=== PATIENT | female | born 1970 | race Caucasian/White ===

== ENCOUNTER 2016-06-11 12:36 | Inpatient (IN) | payer OTHER, MEDICARE ==
[~2016-06-11] VITALS: Ht 162.6 cm; Wt 96.1 kg
[~2016-06-11 12:36] MED LIST: ALBU1.25 NEB; ALBU1AER INH; ALBUAER3 INH; ATOR40TA16 PO; ATOR40TA49 PO; BETH25 PO; BETH25TA2 PO; CETI10 PO; CYMB60CA PO; DEXI60CA PO; DEXI60CA3 PO; ENAL10TA7 PO; FENO160T PO; GABA600T PO; HYDR50 PO; LAMI200T PO; MONT10TA2 PO; MONT10TA4 PO; PROM25TA5 PO; ZOFR4TAB3 SL
[2016-06-11 12:37] VITALS: BP 159/107; PULSE 86; RESP 20; TEMP 98.2; O2SAT 94
[2016-06-11] MEDS ORDERED: DULE200A INH (13:05)
[2016-06-11] MEDS ORDERED: SODIUM CHLORIDE 0.9% FLUSH 5 ML FLUSH IVF PRN ×2 (13:15→15:30)
[2016-06-11 13:27] VITALS: O2SAT 100
[2016-06-11 13:45] LABS: AUTOMATED NEUTROPHIL # 3.3 TH/MM3 (1.8-7.7); BASOPHIL # 0.1 TH/MM3 (0-0.2); EOSINOPHIL # 0.4 TH/MM3 (0-0.4); HEMATOCRIT 39.2 % (35.0-46.0); HEMO FLAGS DIFF FINAL; LYMPH % 42.2 % (9.0-44.0); MEAN CORPUSCULAR HEMOGLOBIN 29.4 PG (27.0-34.0); MEAN CORPUSCULAR HGB CONC 34.6 % (32.0-36.0); MONO % 5.6 % (0.0-8.0); NEUT % 46.2 % (16.0-70.0); PLATELET COUNT 320 TH/MM3 (150-450); RED BLOOD COUNT 4.61 MIL/MM3 (4.00-5.30); RED CELL DISTRIBUTION WIDTH 14.5 % (11.6-17.2); WHITE BLOOD COUNT 7.1 TH/MM3 (4.0-11.0)
--- NOTE | 2016-06-11 13:53 | PD ---
HPI Chief Complaint: Neuro Symptoms/ Deficits Time Seen by Provider: 12:52 Travel History International Travel<30 days: No Contact w/Intl Traveler<30days: No Traveled to known affect area: No History of Present Illness HPI This is a 45-year-old female who presents to the emergency department with 2 days of left-sided numbness in her arm and her leg associated with a funny feeling in her mouth, and some difficulty walking. She reports that yesterday she felt very weak and dizzy and just slept all day. Her symptoms started around 11 AM. The symptoms persisted today so she decided to come to the emergency department. She has had a headache. She does have a history of hypertension and hyperlipidemia. She has a bladder stimulator which precludes her from getting an MRI. PFSH Past Medical History Hx Anticoagulant Therapy: No Asthma: Yes Anxiety: Yes Cardiovascular Problems: Yes (htn) High Cholesterol: Yes Diminished Hearing: No GERD: Yes Hypertension: Yes Immune Disorder: Yes (INTERSTICHAL CYSTIS) Neurologic: Yes (RLS) Respiratory: Yes (asthma) Immunizations Current: Yes ?: Not Tubal Ligation: Yes Past Surgical History Section: Yes (x1) Cholecystectomy: Yes Genitourinary Surgery: Yes (BLADDER STRETCHING, BLADDER STIMULATOR) Hysterectomy: Yes (2014) Tonsillectomy: Yes Social History Alcohol Use: No Tobacco Use: Yes (1/2 CIGARETTES A DAY/) Substance Use: No Allergies-Medications (Allergen,Severity, Reaction): Coded Allergies: Aspirin (Verified Allergy, Severe, gi, 06/11/16) Ceclor (Verified Allergy, Severe, Rash, 06/11/16) Cephalexin (Verified Allergy, Severe, 06/11/16) Keflex (Verified Allergy, Severe, Swelling, 06/11/16) Penicillin (Verified Allergy, Severe, Anaphylaxis, 06/11/16) Motrin (Verified Allergy, Unknown, gi, 06/11/16) Reported Meds & Prescriptions Reported Meds & Active Scripts Active Reported Dulera 120 Act Inh (Mometasone-Formoterol 120 Act Inh) 200-5 Mcg/Act Inh 2 Puff INH BID Montelukast (Montelukast Sodium) 10 Mg Tab 10 Mg PO HS PRN Albuterol Neb (Albuterol Sulfate) 1.25 Mg/3 Ml Neb 1.25 Mg NEB DIRECTED PRN Proair Hfa 8.5 GM Inh (Albuterol Sulfate) 90 Mcg/Act Aer 2 Puff INH Q4-6H PRN 108 mcg/actuation Urecholine (Bethanechol Chloride) 25 Mg Tab 25 Mg PO Q12HR Lamictal (Lamotrigine) 200 Mg Tab 200 Mg PO DAILY Gabapentin 600 Mg Tab 600 Mg PO TID Fenofibrate 160 Mg Tab 160 Mg PO DAILY Enalapril-Hydrochorothiazide (Enalapril-Hydrochlorothiazide) 10-25 Mg Tab 10-25 Mg PO DAILY Dexilant (Dexlansoprazole) 60 Mg Cap 60 Mg PO DAILY Cymbalta DR (Duloxetine HCl) 60 Mg Capdr 60 Mg PO DAILY Bethanechol 25 Mg Tab 25 Mg PO XX Atorvastatin (Atorvastatin Calcium) 40 Mg Tab 40 Mg PO DAILY Review of Systems Except as stated in HPI: all other systems reviewed are Neg Physical Exam Narrative GENERAL:Well appearing, no acute distress SKIN: Warm and dry. HEAD: Atraumatic. Normocephalic. EYES: Pupils equal and round. No injection or drainage. ENT: Moist mucous membranes NECK: Trachea midline. CARDIOVASCULAR: Regular rate and rhythm. No murmur appreciated. RESPIRATORY: Clear to auscultation. Breath sounds equal bilaterally. GASTROINTESTINAL: Abdomen soft, non-tender, nondistended. MUSCULOSKELETAL: No obvious deformities. NEUROLOGICAL: Awake and alert. Asymmetry with some right sided facial droop. No dysarthria or aphasia. 4 out of 5 strength in the left lower extremity, 5 out of 5 strength in the right lower extremity, 5 out of 5 strength in the bilateral upper extremities. No upper extremity ataxia. Visual christina intact. PSYCHIATRIC: Appropriate mood and affect; insight and judgment normal. Data Data Last Documented VS Vital Signs Date Time Temp Pulse Resp B/P Pulse Ox O2 Delivery O2 Flow Rate FiO2 06/11/16 13:27 100 Room Air 06/11/16 12:37 98.2 86 20 159/107 Orders Electrocardiogram (06/11/16 ) Prothrombin Time / Inr (Pt) (06/11/16 13:02) Act Partial Throm Time (Ptt) (06/11/16 13:02) Complete Blood Count With Diff (06/11/16 13:02) Comprehensive Metabolic Panel (06/11/16 13:02) Troponin I (06/11/16 13:02) Urinalysis - C+S If Indicated (06/11/16 13:02) Ct Brain W/O Iv Contrast(Rout) (06/11/16 13:02) Ecg Monitoring (06/11/16 13:02) Iv Access Insert/Monitor (06/11/16 13:02) Oximetry (06/11/16 13:02) Sodium Chloride 0.9% Flush (Ns Flush) (06/11/16 13:15) Admit Order (Ed Use Only) (06/11/16 ) Labs Laboratory Tests Test 06/11/16 13:15 White Blood Count 7.1 TH/MM3 Red Blood Count 4.61 MIL/MM3 Hemoglobin 13.5 GM/DL Hematocrit 39.2 % Mean Corpuscular Volume 85.0 FL Mean Corpuscular Hemoglobin 29.4 PG Mean Corpuscular Hemoglobin 34.6 % Concent Red Cell Distribution Width 14.5 % Platelet Count 320 TH/MM3 Mean Platelet Volume 8.6 FL Neutrophils (%) (Auto) 46.2 % Lymphocytes (%) (Auto) 42.2 % Monocytes (%) (Auto) 5.6 % Eosinophils (%) (Auto) 5.0 % Basophils (%) (Auto) 1.0 % Neutrophils # (Auto) 3.3 TH/MM3 Lymphocytes # (Auto) 3.0 TH/MM3 Monocytes # (Auto) 0.4 TH/MM3 Eosinophils # (Auto) 0.4 TH/MM3 Basophils # (Auto) 0.1 TH/MM3 CBC Comment DIFF FINAL Differential Comment Prothrombin Time 10.0 SEC Prothromb Time International 0.9 RATIO Ratio Activated Partial 28.0 SEC Thromboplast Time Sodium Level 138 MEQ/L Potassium Level 3.1 MEQ/L Chloride Level 104 MEQ/L Carbon Dioxide Level 24.6 MEQ/L Anion Gap 9 MEQ/L Blood Urea Nitrogen 12 MG/DL Creatinine 0.74 MG/DL Estimat Glomerular Filtration 86 ML/MIN Rate Random Glucose 117 MG/DL Calcium Level 8.6 MG/DL Total Bilirubin 0.8 MG/DL Aspartate Amino Transf 13 U/L (AST/SGOT) Alanine Aminotransferase 27 U/L (ALT/SGPT) Alkaline Phosphatase 110 U/L Troponin I LESS THAN 0.02 NG/ML Total Protein 7.6 GM/DL Albumin 3.7 GM/DL MDM Medical Decision Making Medical Screen Exam Complete: Yes Emergency Medical Condition: Yes Interpretation(s) afebrile, hypertension No leukocytosis Mild hypokalemia Electrolytes are reassuring Urinalysis is negative for infection Differential Diagnosis Ischemic stroke, hemorrhagic stroke, multiple sclerosis, mass, seizure Narrative Course This is a 45-year-old female who presents the emergency department with left- sided numbness and some difficulty walking. She has objective left lower extremity weakness on exam. She is placed on a monitor and an IV was established. Labs are all reassuring and CT of the head is negative for intracranial hemorrhage. Patient's symptoms are concerning for an ischemic stroke. She is unable to get an MRI because she has a bladder stimulator. The patient will be admitted for neurologic evaluation. Diagnosis Primary Impression: CVA (cerebral vascular accident) Qualified Code: I63.9 - Cerebrovascular accident (CVA), unspecified mechanism Admitting Information Admitting Physician Requests: Admit Kathleen Keane MD Jun 11, 2016 13:53
[2016-06-11 13:54] LABS: INTERNATIONAL NORMALIZED RATIO 0.9 RATIO
[2016-06-11 13:55] LABS: ALKALINE PHOSPHATASE 110 U/L (45-117); ALT (GPT) 27 U/L (10-53); ANION GAP 9 MEQ/L (5-15); AST (GOT) 13 U/L (15-37); BICARBONATE 24.6 MEQ/L (21.0-32.0); BLOOD UREA NITROGEN 12 MG/DL (7-18); CHLORIDE 104 MEQ/L (98-107); GLOMERULAR FILTRATION RATE 86 ML/MIN (>89); POTASSIUM 3.1 MEQ/L (3.5-5.1); SODIUM (NA) 138 MEQ/L (136-145); TOTAL BILIRUBIN ADULT 0.8 MG/DL (0.2-1.0)
--- NOTE | 2016-06-11 14:15 | RADRPT ---
EXAM DATE/TIME: 06/11/2016 13:55 [facility] COMPARISON: No previous studies available for comparison. INDICATIONS : Dizzy yesterday, now left sided weakness and facial droop RADIATION DOSE: 43.05 CTDIvol (mGy) MEDICAL HISTORY : Hypertension. Cardiovascular disease SURGICAL HISTORY : Cholecystectomy. Hysterectomy. ENCOUNTER: Initial ACUITY: 1 day PAIN SCALE: 0/10 LOCATION: cranial TECHNIQUE: Multiple contiguous axial images were obtained of the head. Using automated exposure control and adj ustment of the mA and/or kV according to patient size, radiation dose was kept as low as reasonably a chievable to obtain optimal diagnostic quality images. FINDINGS: CEREBRUM: The ventricles are normal for age. No evidence of midline shift, mass lesion, hemorrhage or acute in farction. No extra-axial fluid collections are seen. POSTERIOR FOSSA: The cerebellum and brainstem are intact. The 4th ventricle is midline. The cerebellopontine angle i s unremarkable. EXTRACRANIAL: The visualized portion of the orbits is intact. SKULL: The calvaria is intact. No evidence of skull fracture. CONCLUSION: No acute disease. Dajuan Ferrell MD on June 11, 2016 at 14:13 Board Certified Radiologist. This report was verified electronically.
--- NOTE | 2016-06-11 15:28 | HHI.HP ---
[facility] Primary Care Physician Jordy Lawler MD Admission Diagnosis stroke Diagnoses: (1) CVA (cerebral vascular accident) Chief Complaint: Left-sided numbness and weakness Travel History International Travel<30 Days: No Contact w/Intl Traveler <30 Da: No Traveled to Known Affected Are: No History of Present Illness 45-year-old female with a history of hypertension, interstitial cystitis for which she has a bladder stimulator was advised by her PCP whom she is going to see today for evaluation of acute onset of left-sided numbness and weakness 2 days, difficulty with walking and a sensation of not feeling well described as dizziness and very sleepy to come to the emergency department for evaluation of uncontrolled/malignant hypertension versus TIA. Patient also reported Headache. She also noticed left lower facial numbness along with what she described as funny speech. She has no bladder or bowel dysfunction Review of Systems Other Other 12 systems reviewed and are negative except for the one mentioned in history of present illness Past Family Social History Past Medical History Asthma: Yes Anxiety: Yes High Cholesterol: Yes GERD: Yes Hypertension: Yes Immune Disorder: Yes (INTERSTICHAL CYSTIS) Neurologic: Yes (RLS) Past Surgical History Section: Yes (x1) Cholecystectomy: Yes Genitourinary Surgery: Yes (BLADDER STRETCHING, BLADDER STIMULATOR) Hysterectomy: Yes (2014) Tonsillectomy: Yes Reported Medications Dulera 120 Act Inh (Mometasone-Formoterol 120 Act Inh) 200-5 Mcg/Act Inh 2 Puff INH BID Montelukast (Montelukast Sodium) 10 Mg Tab 10 Mg PO HS PRN Albuterol Neb (Albuterol Sulfate) 1.25 Mg/3 Ml Neb 1.25 Mg NEB DIRECTED PRN Proair Hfa 8.5 GM Inh (Albuterol Sulfate) 90 Mcg/Act Aer 2 Puff INH Q4-6H PRN 108 mcg/actuation Urecholine (Bethanechol Chloride) 25 Mg Tab 25 Mg PO Q12HR Lamictal (Lamotrigine) 200 Mg Tab 200 Mg PO DAILY Gabapentin 600 Mg Tab 600 Mg PO TID Fenofibrate 160 Mg Tab 160 Mg PO DAILY Enalapril-Hydrochorothiazide (Enalapril-Hydrochlorothiazide) 10-25 Mg Tab 10-25 Mg PO DAILY Dexilant (Dexlansoprazole) 60 Mg Cap 60 Mg PO DAILY Cymbalta DR (Duloxetine HCl) 60 Mg Capdr 60 Mg PO DAILY Bethanechol 25 Mg Tab 25 Mg PO XX Atorvastatin (Atorvastatin Calcium) 40 Mg Tab 40 Mg PO DAILY Allergies: Coded Allergies: Aspirin (Verified Allergy, Severe, gi, 06/11/16) Ceclor (Verified Allergy, Severe, Rash, 06/11/16) Cephalexin (Verified Allergy, Severe, 06/11/16) Keflex (Verified Allergy, Severe, Swelling, 06/11/16) Penicillin (Verified Allergy, Severe, Anaphylaxis, 06/11/16) Motrin (Verified Allergy, Unknown, gi, 06/11/16) Family History Mother with history of hypertension father with history of CVA ,heart attack Social History Alcohol Use: No Tobacco Use: Yes (1/2 CIGARETTES A DAY/) Substance Use: No Physical Exam Vital Signs Vital Signs Date Time Temp Pulse Resp B/P Pulse Ox O2 Delivery O2 Flow Rate FiO2 06/11/16 13:27 100 Room Air 06/11/16 12:37 98.2 86 20 159/107 94 Room Air Physical Exam GENERAL: This is a well-nourished, well-developed patient, in no apparent distress. SKIN: No rashes, ecchymoses or lesions. Cool and dry. HEAD: Atraumatic. Normocephalic. No temporal or scalp tenderness. EYES: Pupils equal round and reactive. Extraocular motions intact. No scleral icterus. No injection or drainage. ENT: Nose without bleeding, purulent drainage or septal hematoma. Throat without erythema, tonsillar hypertrophy or exudate. Uvula midline. Airway patent. NECK: Trachea midline. No JVD or lymphadenopathy. Supple, nontender, no meningeal signs. CARDIOVASCULAR: Regular rate and rhythm without murmurs, gallops, or rubs. RESPIRATORY: Clear to auscultation. Breath sounds equal bilaterally. No wheezes , rales, or rhonchi. GASTROINTESTINAL: Abdomen soft, non-tender, nondistended. No hepato-splenomegaly , or palpable masses. No guarding. MUSCULOSKELETAL: Extremities without clubbing, cyanosis, or edema. No joint tenderness, effusion, or edema noted. No calf tenderness. Negative Homans sign bilaterally. NEUROLOGICAL: Awake and alert. Cranial nerves II through XII intact. Left lower facial droop. 4 out of 5 muscle strength LLE and LUE. Laboratory Laboratory Tests Test 06/11/16 13:15 White Blood Count 7.1 Red Blood Count 4.61 Hemoglobin 13.5 Hematocrit 39.2 Mean Corpuscular Volume 85.0 Mean Corpuscular Hemoglobin 29.4 Mean Corpuscular Hemoglobin 34.6 Concent Red Cell Distribution Width 14.5 Platelet Count 320 Mean Platelet Volume 8.6 Neutrophils (%) (Auto) 46.2 Lymphocytes (%) (Auto) 42.2 Monocytes (%) (Auto) 5.6 Eosinophils (%) (Auto) 5.0 Basophils (%) (Auto) 1.0 Neutrophils # (Auto) 3.3 Lymphocytes # (Auto) 3.0 Monocytes # (Auto) 0.4 Eosinophils # (Auto) 0.4 Basophils # (Auto) 0.1 CBC Comment DIFF FINAL Differential Comment Prothrombin Time 10.0 Prothromb Time International 0.9 Ratio Activated Partial 28.0 Thromboplast Time Sodium Level 138 Potassium Level 3.1 Chloride Level 104 Carbon Dioxide Level 24.6 Anion Gap 9 Blood Urea Nitrogen 12 Creatinine 0.74 Estimat Glomerular Filtration 86 Rate Random Glucose 117 Calcium Level 8.6 Total Bilirubin 0.8 Aspartate Amino Transf 13 (AST/SGOT) Alanine Aminotransferase 27 (ALT/SGPT) Alkaline Phosphatase 110 Troponin I LESS THAN 0.02 Total Protein 7.6 Albumin 3.7 Result Diagram: 06/11/16 1315 06/11/16 1315 Imaging Last Impressions Head CT 06/11/16 1302 Signed Impressions: Service Date/Time: May 13:55 - CONCLUSION: No acute disease. Dajuan Ferrell MD Assessment and Plan Problem List: (1) CVA (cerebral vascular accident) ICD Code: I63.9 Status: Acute Assessment and Plan 45-year-old female with Acute CVA/TIA?: Treatment per stroke protocol -Continue with aspirin -Resume statin therapy -NIHSS, Neuro checks, Monitor on telemetry -PT/OT/ST evaluations, consult rehab medicine -allow permissive HTN, IV Vasotec and IV labetalol if SBP >220 -Check lipid profile and HgbA1c -Check carotid U/S -Head CT 06/11/16 noted and review by me with No acute intracranial disease - brain MRI/MRA contraindicated secondary to bladder stimulator due to interstitial cystitis -Check echocardiogram -Neurology consulted History of hypertension: We will allow for permissive hypertension 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 In the case of services not specified as inpatient-only, they are appropriately provided as inpatient services in accordance with the 2-midnight benchmark. Estimated LOS (days): 2 days is the estimated time the patient will need to remain in the hospital, assuming treatment plan goals are met and no additional complications. Post-Hospital Plan: Not yet determined Valeriano Walker MD Jun 11, 2016 15:28
[2016-06-11] MEDS ORDERED: GLUCAGON 1 MG/ML VIAL IM/SQ PRN (15:30)
[2016-06-11] MEDS ORDERED: DEXTROSE 50% IN WATER 50 ML VIAL(D50) IV PUSH PRN (15:30)
[2016-06-11] MEDS: INSULIN ASPART SUPPLEMENTAL SCALE SQ SCH ×2 (16:00→21:00)
[2016-06-11] MEDS ORDERED: DOCUSATE SODIUM 50 MG/SENNA 8.6 MG TAB PO PRN (16:00)
[2016-06-11 16:41] LABS: BLOOD, URINE NEG (NEG); GLUCOSE,URINE NEG (NEG); HYALINE CAST, URINE 1 /lpf (RARE); KETONE, URINE NEG (NEG); MUCUS URINE MANY /lpf (OCC); NITRITE,URINE NEG (NEG); SQUAMOUS EPITHELIAL CELL URINE 2 /hpf (0-5); URINE COLOR YELLOW (YELLW/STRAW)
[2016-06-11 16:49] LABS: COMMENT (UR) CATH-CULT NOT IND; CULTURE IF INDICATED CATH CULTURE NOT IND
[2016-06-11] MEDS ORDERED: ENALAPRILAT 1.25 MG/ML VIAL IV PRN (17:00)
[2016-06-11] MEDS ORDERED: MONTELUKAST SODIUM 10 MG TAB PO PRN (17:00)
[2016-06-11] MEDS ORDERED: ONDANSETRON HCL 4 MG/2 ML VIAL IV PRN (17:00)
[2016-06-11] MEDS ORDERED: TEMAZEPAM 15 MG CAP PO PRN (17:00)
[2016-06-11] MEDS ORDERED: RESP: ALBUTEROL 2.5 MG/IPRATROPIUM 0.5 MG NEB (PRN) NEB (17:00)
[2016-06-11] MEDS ORDERED: ACETAMINOPHEN 325 MG TAB PO PRN (17:00)
[2016-06-11 17:09] LABS: HEMOGLOBIN A1a 1.2 %; HEMOGLOBIN A1b 1.9 %; HEMOGLOBIN Ao 85.7 %; HEMOGLOBIN LA1C 1.9 %; HEMOGLOBIN P3 3.5 %
[2016-06-11 17:31] VITALS: BP 158/93; PULSE 76; RESP 18; O2SAT 95
[2016-06-11 18:28] LABS: BETA HCG QUANT LESS THAN 1 MIU/ML (0-5)
[2016-06-11] MEDS ORDERED: IOHEXOL 350 MG/ML 10 ML VIAL (for RAD DIAG) IV ONE (19:10)
--- NOTE | 2016-06-11 19:34 | MB ---
cc: SANTY CAMARA DATE OF CONSULTATION 06/11/16 HISTORY OF PRESENT ILLNESS A 45 year old right-handed woman with a history of hypertension, hypercholesterolemia, asthma, interstitial cystitis. She does not take an aspirin a day. Yesterday about 11 in the morning she felt tired all over, weak, a little bit dizzier in balance, felt like an internal tremor. She went to bed and slept well. She has noticed for several months that her arms might fall asleep, her hands at night fall asleep. The left leg for the last several days has been numb on and off and maybe a little heavy. It is unclear. She has had about two months of headaches. She saw an eye doctor about three months and everything was fine. She has worn glasses her whole life. She feels like her vision is a bit worse in the last several months, however, since she saw the eye doctor. According to the chart, she had two days of left-sided numbness in her arm and leg with a funny feeling in her mouth, difficulty walking. She also complained to another doctor she had left lower facial numbness and funny speech. REVIEW OF SYSTEMS She denied any diabetes, true vertigo, MT, coronary artery bypass graft, stent, angioplasty, A fib, Coumadin, renal, hepatic disease, thyroid disease, lupus, ulcer, cancer seizure, stroke. SOCIAL HISTORY She is a smoker and I have asked her to quit. She is not a drinker, lives with her boyfriend. FAMILY HISTORY Positive for cancer in her brother. Negative for seizure. Positive for stroke in her father. Positive for miscarriages in a daughter but no blood clots in the family. Daughter evidently has had eclampsia in the past. ALLERGIES ASPIRIN PER GI. CECLOR CEPHALEXIN KEFLEX PENICILLIN MOTRIN. MEDICATIONS 1. Atorvastatin 2. Bethanechol 3. Cymbalta 60 a day 4. Dexilant 5. Enalapril. 6. Hydrochlorothiazide 7. Fenofibrate. 8. Gabapentin 600 t.i.d. 9. Lamictal 200 a day, 10. Urecholine 11. ProAir inhalers PHYSICAL EXAMINATION On exam 158/93, 18, 76, afebrile. She has been in sinus rhythm. There were no carotid bruits. Heart was regular rhythm. I did not detect a murmur. Pupils are equal. Visual christina are full. Extraocular movements intact without nystagmus. Visual acuity without her glasses on reading at about 14 inches. She was 20/200. She could read 20/20 with it up close. I could not see her disks well, although U suspect probably it is due to a refractory problem. Face symmetrical with normal sensation. Tongue was midline. There is no drift. She had normal strength in upper and lower extremities bilaterally. DTRs are 2+ and symmetric at the knees. Toes are downgoing bilaterally. There is no ankle clonus. Tone was normal throughout. Pinprick and vibratory sense are intact throughout including the hands, feet and left anterior thigh. She is not ataxic on [id number]. Speech is fluent. She is not aphasic. LABORATORY DATA CBC is normal. Basic metabolic profile essentially normal. LFTs normal. Troponin negative. Albumin normal. Hemoglobin A1c is pending. Coags normal. CBC normal. UA was negative. IMAGING STUDIES She had a chest x-ray which was normal. She cannot have an MRI due to the bladder stimulator. CAT scan was read as normal. Review of the films. CT scan of the brain I would agree is normal. IMPRESSION I think overall she looks well neurologically. She has a lot of individual complaints but probably nothing that is going to be found to be clinically relevant. We are going to check however a CT scan of his cervical spine with the history of complaints of numbness on three of her four extremities and just to be sure we will check some additional blood work, a urine drug screen and CTA of her neck and [place]. She cannot have an MRI due to the bladder stimulator. We will just put her on aspirin for now and I will be following her with you in the hospital. we will also check some standing blood pressures on her. I could not see her disks well and I have asked her to go back and see her eye doctor and make sure there is no papilledema back there because of vision has gotten a bit worse. Her visual acuity is not good but fully that is longstanding for her probably not a new problem but she should see the doctor again within the next week and this could be arranged by the primary care team. MD JACQUELINE Roberts/ /5:40 PM /7:04 PM
--- NOTE | 2016-06-11 19:43 | RADRPT ---
EXAM DATE/TIME: 06/11/2016 18:52 [facility] COMPARISON: No previous studies available for comparison. INDICATIONS : Left sided numbness and weakness and weakness for two days. IV CONTRAST: 74 cc Omnipaque 350 (iohexol) IV ; Cumulative dose for multiple exams. RADIATION DOSE: 15.81 CTDIvol (mGy) ; Combined studies MEDICAL HISTORY : Hypertension. Deep venous thrombosis. SURGICAL HISTORY : Hysterectomy. Tonsillectomy.Tubal ligation. ENCOUNTER: Initial ACUITY: 2 days PAIN SCALE: 2/10 LOCATION: cranial TECHNIQUE: Volumetric scanning was performed using a multi-row detector CT scanner. The data was post processed with a variety of visualization algorithms including full volume maximum intensity projection, multi -planar sliding thin slab reformation, curved planar reformation, and surface rendering techniques. Using automated exposure control and adjustment of the mA and/or kV according to patient size, radiat ion dose was kept as low as reasonably achievable to obtain optimal diagnostic quality images. FINDINGS: There is excellent visualization of the major intracranial arteries out to the second-order branch ve ssels. There is no evidence for aneurysm, vessel truncation or stenosis, and no evidence for vascula r malformation. CONCLUSION: Negative CT of the brain. Parag Davies MD FACR on June 11, 2016 at 19:39 Board Certified Radiologist. This report was verified electronically.
--- NOTE | 2016-06-11 19:44 | RADRPT ---
EXAM DATE/TIME: 06/11/2016 18:51 [facility] COMPARISON: No previous studies available for comparison. INDICATIONS : Left sided numbness and weakness for two days. RADIATION DOSE: CTDIvol (mGy) ; Reconstructed from previous dataset MEDICAL HISTORY : Hypertension. Deep venous thrombosis. SURGICAL HISTORY : Hysterectomy. Tubal ligation.Tonsillectomy. ENCOUNTER: Initial ACUITY: 2 days PAIN SCALE: 2/10 LOCATION: neck TECHNIQUE: Volumetric scanning of the cervical spine was performed. Multiplanar reconstructions in the sagittal, coronal and oblique axial planes were performed. Using automated exposure control and adjustment o f the mA and/or kV according to patient size, radiation dose was kept as low as reasonably achievable to obtain optimal diagnostic quality images. FINDINGS: VERTEBRAE: Normal vertebral body height. ALIGNMENT: No evidence of subluxation. C2-C3: The bony spinal canal is normal in size. No evidence of disc bulge or herniation. The neural forami na are bilaterally patent. C3-C4: The bony spinal canal is normal in size. No evidence of disc bulge or herniation. The neural forami na are bilaterally patent. C4-C5: The bony spinal canal is normal in size. No evidence of disc bulge or herniation. The neural forami na are bilaterally patent. C5-C6: Mild uncinate ridging is present without significant spinal stenosis. C6-C7: The bony spinal canal is normal in size. No evidence of disc bulge or herniation. The neural forami na are bilaterally patent. C7-T1: The bony spinal canal is normal in size. No evidence of disc bulge or herniation. The neural forami na are bilaterally patent. CONCLUSION: Mild degenerative changes. MRI would be of benefit. Parag Davies MD FACR on June 11, 2016 at 19:41 Board Certified Radiologist. This report was verified electronically.
--- NOTE | 2016-06-11 20:24 | RADRPT ---
EXAM DATE/TIME: 06/11/2016 18:52 [place] COMPARISON: No previous studies available for comparison. INDICATIONS : Left side numbness and weakness for two days IV CONTRAST: 74 cc Omnipaque 350 (iohexol) IV ; Cumulative dose for multiple exams. RADIATION DOSE: 15.81 CTDIvol (mGy) ; Combined studies MEDICAL HISTORY : Hypertension. Deep venous thrombosis. SURGICAL HISTORY : Hysterectomy. Tubal ligation.Tonsillectomy. ENCOUNTER: Initial ACUITY: 2 days PAIN SCALE: 2/10 LOCATION: neck TECHNIQUE: Volumetric scanning was performed using a multirow detector CT scanner. The data was post processed with a variety of visualization algorithms including full-volume maximum intensity projection, multip lanar sliding thin-slab reformation, curved-planar reformation, and surface-rendering techniques. Us ing automated exposure control and adjustment of the mA and/or kV according to patient size, radiatio n dose was kept as low as reasonably achievable to obtain optimal diagnostic quality images. FINDINGS: AORTIC ARCH: There is a three-vessel origin of the great vessels from the aorta. No evidence of ostial narrowing. RIGHT CAROTID: The common carotid artery is intact. The carotid bulb has a normal configuration without ulceration o r narrowing. The internal carotid artery lumen is smooth without stenosis. The external carotid marga ry is intact. LEFT CAROTID: The common carotid artery is intact. The carotid bulb has a normal configuration without ulceration or narrowing. The internal carotid artery lumen is smooth without stenosis. The external carotid ar obed is intact. VERTEBRALS: The vertebral arteries have a symmetric diameter. No stenotic lesions are seen. CONCLUSION: Negative CT carotid angiogram.. Parag Davies MD FACR on June 11, 2016 at 20:22 Board Certified Radiologist. This report was verified electronically.
[2016-06-11 20:43] VITALS: O2SAT 96
[2016-06-11] MEDS ORDERED: FORMOTEROL INH SCH (21:00)
[2016-06-11] MEDS ORDERED: MOMETASONE INH SCH (21:00)
[2016-06-11 21:22] VITALS: BP_SYST 142; BP_SYST 190; BP_DIAS 91; BP_DIAS 99; PULSE 65; RESP 16; TEMP 97; O2SAT 97
[2016-06-11 21:24] VITALS: BP 163/100
[2016-06-11] MEDS ORDERED: DULoxetine HCl DR 60 MG CAP PO SCH (21:30)
[2016-06-11] MEDS ORDERED: lamoTRIgine 100 MG TAB PO SCH (21:30)
[2016-06-11] MEDS: GABAPENTIN 300 MG CAP PO SCH (21:43)
[2016-06-11] MEDS: SODIUM CHLORIDE 0.9% FLUSH 5 ML FLUSH IVF SCH (21:44)
[2016-06-12] VITALS: BP 136/78; PULSE 82; RESP 16; TEMP 97; O2SAT 96
[2016-06-12 01:16] LABS: AMPHETAMINE, URINE NEG (NEG); BARBITURATES, URINE NEG (NEG); COCAINE, URINE NEG (NEG)
[2016-06-12 04:53] VITALS: BP 130/86; PULSE 82; RESP 18; TEMP 98; O2SAT 95
[2016-06-12] MEDS: INSULIN ASPART SUPPLEMENTAL SCALE SQ SCH (05:13)
--- NOTE | 2016-06-12 07:42 | HHI.PR ---
Subjective Remarks no new sx feels great Objective Vital Signs Date Time Temp Pulse Resp B/P Pulse Ox O2 Delivery O2 Flow Rate FiO2 06/12/16 04:53 98.0 82 18 130/86 95 06/12/16 00:00 97.0 82 16 136/78 96 06/11/16 21:24 163/100 06/11/16 21:22 97.0 65 16 142/91 97 06/11/16 21:22 190/99 06/11/16 20:43 96 06/11/16 17:31 76 18 158/93 95 06/11/16 13:27 100 Room Air 06/11/16 12:37 98.2 86 20 159/107 94 Room Air I/O 06/11/16 06/11/16 06/11/16 06/12/16 06/12/16 06/12/16 07:00 15:00 23:00 07:00 15:00 23:00 Intake Total 350 ml 350 ml Balance 350 ml 350 ml Intake Oral 350 ml 350 ml # Voids 1 2 # Bowel Movements 0 0 Result Diagram: 06/11/16 1315 06/11/16 1315 Other Results labs pend cta neg braina nd neck ct c spine neg bp standing inc Objective Remarks awake alert nl speech nad standing well Assessment and Plan Assessment and Plan imp sr fu labs she needs to fu with optho to get good look at her discs next week as o/p plz set this up for her and if papilledema seen optho can call my office ok by me dc on asa needs htn control Kenyon Oviedo MD Jun 12, 2016 07:42
[2016-06-12 07:46] LABS: FREE T4 1.03 NG/DL (0.76-1.46); HDL CHOLESTEROL 42.2 MG/DL (40.0-60.0)
[2016-06-12 08:05] VITALS: BP_SYST 141; BP_SYST 154; BP_DIAS 81; BP_DIAS 91; PULSE 77; RESP 15; TEMP 98.1; O2SAT 98
[2016-06-12] MEDS: GABAPENTIN 300 MG CAP PO SCH (08:09)
[2016-06-12] MEDS: SODIUM CHLORIDE 0.9% FLUSH 5 ML FLUSH IVF SCH (08:10)
[2016-06-12] MEDS ORDERED: ASPI81TA11 PO (08:17)
--- NOTE | 2016-06-12 08:25 | HHI.PR ---
Subjective Remarks Follow-up TIA/left-sided paresthesia 06/12/16-patient seen and examined; reported resolution of left-sided numbness and weakness as well as left lower quadrant fascial numbness. Seen by neurology and cleared for discharge. radiographic studies unremarkable Objective Vitals Vital Signs Date Time Temp Pulse Resp B/P Pulse Ox O2 Delivery O2 Flow Rate FiO2 06/12/16 08:05 98.1 77 15 141/81 98 154/91 06/12/16 04:53 98.0 82 18 130/86 95 06/12/16 00:00 97.0 82 16 136/78 96 06/11/16 21:24 163/100 06/11/16 21:22 97.0 65 16 142/91 97 06/11/16 21:22 190/99 06/11/16 20:43 96 06/11/16 17:31 76 18 158/93 95 06/11/16 13:27 100 Room Air 06/11/16 12:37 98.2 86 20 159/107 94 Room Air I/O 06/11/16 06/11/16 06/11/16 06/12/16 06/12/16 06/12/16 07:00 15:00 23:00 07:00 15:00 23:00 Intake Total 350 ml 350 ml Balance 350 ml 350 ml Intake Oral 350 ml 350 ml # Voids 1 2 # Bowel Movements 0 0 Result Diagram: 06/11/16 1315 06/11/16 1315 Imaging Last Impressions Neck CTA 06/11/16 1745 Signed Impressions: Service Date/Time: May 18:52 - CONCLUSION: Negative CT carotid angiogram.. Parag Davies MD FACR Head CTA 06/11/16 1745 Signed Impressions: Service Date/Time: May 18:52 - CONCLUSION: Negative CT of the brain. Parag Davies MD FACR Head CT 06/11/16 1302 Signed Impressions: Service Date/Time: May 13:55 - CONCLUSION: No acute disease. Dajuan Ferrell MD Cervical Spine CT 06/11/16 0000 Signed Impressions: Service Date/Time: May 18:51 - CONCLUSION: Mild degenerative changes. MRI would be of benefit. Parag Davies MD FACR Objective Remarks GENERAL: NAD SKIN: Warm and dry. HEAD: Normocephalic. EYES: No scleral icterus. No injection or drainage. NECK: Supple, trachea midline. No JVD or lymphadenopathy. CARDIOVASCULAR: Regular rate and rhythm without murmurs, gallops, or rubs. RESPIRATORY: Breath sounds equal bilaterally. No accessory muscle use. GASTROINTESTINAL: Abdomen soft, non-tender, nondistended. MUSCULOSKELETAL: No cyanosis, or edema. BACK: Nontender without obvious deformity. No CVA tenderness. A/P Problem List: (1) CVA (cerebral vascular accident) ICD Code: I63.9 Status: Acute Assessment and Plan 45-year-old female with Acute CVA/TIA?: Treatment per stroke protocol-patient's condition tremendously improved since admission -Continue with aspirin -continue statin therapy -NIHSS, Neuro checks, Monitor on telemetry -PT/OT/ST evaluations, consult rehab medicine -d/c permissive HTN, IV Vasotec and IV labetalol if SBP >220 -Check lipid profile and HgbA1c -Neck CTA/Head CTA negative -Head CT 06/11/16 with No acute intracranial disease - brain MRI/MRA contraindicated secondary to bladder stimulator due to interstitial cystitis -Check echocardiogram -Neurology consultation appreciated -Patient advised to follow up outpatient with ophthalmology for evaluation of her discs; and if papilledema seen in this notify neurology History of hypertension: d/c permissive hypertension prior to discharge and resume BP med Hypokalemia: Replace electrolyte 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
--- NOTE | 2016-06-12 08:47 | EC ---
Study Study Date:06/11/2016 STUDY CONCLUSIONS SUMMARY - Left ventricle: The cavity size was normal. Wall thickness was normal. Systolic function was normal. The estimated ejection fraction was in the range of 55% to 60%. Wall motion was normal; there were no regional wall motion abnormalities. - Atrial septum: No defect or patent foramen ovale was identified. Impressions: No cardiac source of emboli was indentified. If LV function is below 40, please consider prescribing an ACEI or ARB or document rationale for non-use. PROCEDURE DATA STUDY STATUS: Elective. Procedure: Transthoracic echocardiography. Image quality was good. Scanning was performed from the parasternal, apical, and subcostal acoustic windows. Study completion: The patient tolerated the procedure well. Transthoracic echocardiography. M-mode, complete 2D, complete spectral Doppler, and color Doppler. Patient status: Inpatient. CARDIAC ANATOMY LEFT VENTRICLE: The cavity size was normal. Wall thickness was normal. Systolic function was normal. The estimated ejection fraction was in the range of 55% to 60%. Wall motion was normal; there were no regional wall motion abnormalities. AORTIC VALVE: Trileaflet; normal thickness leaflets. Doppler: Transvalvular velocity was within the normal range. There was no stenosis. No regurgitation. AORTA: Aortic root: The aortic root was normal in size. MITRAL VALVE: Structurally normal valve. Doppler: Transvalvular velocity was within the normal range. There was no evidence for stenosis. No regurgitation. Peak gradient: 3mm Hg (D). LEFT ATRIUM: The atrium was normal in size. ATRIAL SEPTUM: No defect or patent foramen ovale was identified. RIGHT VENTRICLE: The cavity size was normal. Wall thickness was normal. PULMONIC VALVE: Doppler: Transvalvular velocity was within the normal range. There was no evidence for stenosis. No regurgitation. TRICUSPID VALVE: Structurally normal valve. Doppler: Transvalvular velocity was within the normal range. No regurgitation. PULMONARY ARTERY: The main pulmonary artery was normal-sized. Systolic pressure was within the normal range. RIGHT ATRIUM: The atrium was normal in size. PERICARDIUM: There was no pericardial effusion. SYSTEMIC VEINS: Inferior vena cava: The vessel was normal in size. BASIC MEASUREMENTS ADULT Normal Left ventricle LV internal dimension, ED, chordal level, *42.3 mm 43-52 PLAX LV posterior wall thickness, ED 8.27 mm IVS/LVPW ratio, ED *1.55 <1.3 Ventricular septum Septal thickness, ED 12.8 mm Aortic valve Leaflet separation 20 mm 15-26 Left atrium Anterior-posterior dimension 39 mm Right ventricle RV internal dimension, ED, PLAX 19.1 mm 19-38 BASIC MEASUREMENTS ADULT Normal Aortic valve Leaflet separation 20 mm 15-26 Aorta Root diameter, ED 28 mm 20-37 DOPPLER MEASUREMENTS ADULT Normal Main pulmonary artery Pressure, S 28 mm Hg =30 Mitral valve Peak E-wave velocity 89.3 cm/s Peak A-wave velocity 58.7 cm/s Peak gradient, D 3 mm Hg Peak E/A ratio 1.5 Tricuspid valve Regurgitant peak velocity 130 cm/s Peak RV-RA gradient, S 7 mm Hg Maximal regurgitant velocity 130 cm/s Systemic veins Estimated CVP 10 mm Hg Right ventricle RV pressure, S 28 mm Hg <30 LEGEND: Mean values are shown as u=mean value. Asterisk (*) leroy values outside specified normal range. Prepared and signed by John Meyers [id number]
[2016-06-12] MEDS ORDERED: PANTOPRAZOLE SOD 40 MG DELAYED RELEASE TAB PO SCH (09:00)
[2016-06-12] MEDS ORDERED: DULoxetine HCl DR 60 MG CAP PO SCH (09:00)
[2016-06-12] MEDS ORDERED: FENOFIBRATE 145 MG TAB PO SCH (09:00)
[2016-06-12] MEDS ORDERED: ATORVASTATIN 40 MG TAB PO SCH (09:00)
[2016-06-12] MEDS ORDERED: ASPIRIN 81 MG CHEW TAB PO SCH (09:00)
[2016-06-12] MEDS ORDERED: ENALAPRIL HYDROCHLOROTHIAZIDE PO SCH (09:00)
[2016-06-12] MEDS ORDERED: GABAPENTIN 300 MG CAP PO SCH (09:00)
[2016-06-12] MEDS ORDERED: lamoTRIgine 100 MG TAB PO SCH (09:00)
[2016-06-12] MEDS ORDERED: POTASSIUM CHLORIDE 20 MEQ CONTROLLED RELEASE TAB PO ONE (09:15)
[2016-06-12] MEDS ORDERED: HYDROCHLOROTHIAZIDE 25 MG TAB PO SCH (10:00)
[2016-06-12] MEDS ORDERED: ENALAPRIL MALEATE 10 MG TAB PO SCH (10:00)
[2016-06-12 10:01] LABS: RAPID PLASMA REAGIN SCREEN NON-REACTIVE (NON-REACTVE)
[2016-06-12] MEDS ORDERED: ACETAMIN 325 MG/BUTALBITAL 50 MG/CAFFEINE 40 MG TAB PO PRN (10:30)
[2016-06-12 10:59] VITALS: PULSE 75
[2016-06-12 10:59] LABS: ANA SCREEN POS (NEG)
--- NOTE | 2016-06-12 16:44 | OTSOAPIP ---
TIME SESSION COMPLETED: 1415 TREATMENT TIME: 0 MINS. CHART REVIEWED. ATTEMPTED TO SEE FOR OT EVALUATION. HOWEVER PT HAD ALREADY BEEN DISCHARGED HOME. Therapist: LIEN MARTINEZ OT/L Signature on file
--- NOTE | 2016-06-12 18:46 | EKG ---
Date Performed: 06/11/2016 Time Performed: 13:18:20 PTAGE: 45 years EKG: ELECTRONIC ATRIAL PACEMAKER NONSPECIFIC T-WAVE ABNORMALITY ABNORMAL RHYTHM ECG PREVIOUS TRACING 08/23/2014 13.05.08 Since previous tracing, no significant change noted DOCTOR: Talisha Fontanez Interpretating Date/Time 06/12/2016 18:45:14
--- NOTE | 2016-06-15 13:48 | PQ ---
Physician Query Response Document PATIENT: MOOKIE ALCAZAR : 1970 ADMIT DATE: 06/11/2016 2:48 PM DISCH DATE: 06/12/2016 12:14 PM RESPONDING PROVIDER #: Kristy QUERY TEXT: TIA vs. CVA Acute CVA/TIA - is documented in the Medical Record. After completed work-up, please specify if condition was: -- CVA confirmed -- CVA ruled out (if so, please clarify definitive diagnosis) -- TIA (please specify cause including probable or suspected) -- Other, please specify The patient's Clinical Indicators include: 06/11/16 Admission Diagnosis stroke PER INITIAL H 06/12/16 PROGRESS NOTE STATES: Follow-up TIA/left-sided paresthesia 06/12/16-patient seen and examined; reported resolution of left-sided numbness and weakness as well a s left lower quadrant fascial numbness. Seen by neurology and cleared for discharge. radiographic st udies unremarkable Query created by: Marissa Gutiérrez on 06/12/2016 12:11 PM RESPONSE TEXT: TIA and not CVA Electronically signed by: Valeriano Walker MD 06/15/2016 1:44 PM
[2016-06-25] MEDS ORDERED: POTA10TA2 PO (10:48)
[2016-06-26] MEDS ORDERED: FEXO15TA PO (09:58)
== END 2016-06-12 12:14 | disposition home or self-care (01) | DRG 69 ==
LOC: NEPC 12:36 → NEDA 14:48 → N05B 19:44
PROVIDERS: ADMIT Hospitalist; ATTEND Hospitalist
DX: G45.9 Transient cerebral ischemic attack, unspecified (principal); G81.94 Hemiplegia, unspecified affecting left nondominant side; I10 Essential (primary) hypertension; R20.0 Anesthesia of skin; R29.810 Facial weakness; F17.210 Nicotine dependence, cigarettes, uncomplicated; R26.2 Difficulty in walking, not elsewhere classified; J45.909 Unspecified asthma, uncomplicated; K21.9 Gastro-esophageal reflux disease without esophagitis; E78.00 Pure hypercholesterolemia, unspecified; E78.5 Hyperlipidemia, unspecified; Z82.3 Family history of stroke; E87.6 Hypokalemia; F41.9 Anxiety disorder, unspecified; G25.81 Restless legs syndrome
CPT/HCPCS: 70450; 70496; 70498; 72125; 80053; 80061; 80307; 81001; 82607; 82948; 83036; 84439; 84443; 84484; 84702; 85025; 85610; 85652; 85730; 86038; 86039; 86592; 93005; 93306; Q9967

== ENCOUNTER → 2016-06-26 | Day surgery (SDC) | payer OTHER ==
--- NOTE | 2016-06-16 11:19 | MH ---
cc: MONSE NAILS MD DATE OF ADMISSION: 06/26/2016 DATE OF 1970 REASON FOR ADMISSION Cystoscopy and hydrodistention with bladder instillation. HISTORY OF PRESENT ILLNESS The patient is a 45-year-old white female, 4, para 3, with a history of laparoscopic hysterectomy and InterStim placement. She has a long history of interstitial cystitis. She has had recent flare ups which seem to be associated with her smoking and stress. She has had good response in the past with hydrodistention and would like to proceed with a repeat cystoscopy. PAST MEDICAL HISTORY 1. The patient's medical history notable for recent TIA felt secondary to hypertension. 2. She has hypercholesterolemia. 3. Elevated triglycerides. 4. Depression. 5. Chronic fatigue. 6. Fibromyalgia. 7. Elevated body mass index. 8. History of possible DVT, although is not on any anticoagulants. SURGICAL HISTORY 1. Cholecystectomy. 2. Bladder hydrodistention. 3. Tubal ligation. 4. Total laparoscopic hysterectomy. 5. InterStim placement. ALLERGIES ASPIRIN and NONSTEROIDALS causes stomach upset but not any systemic reaction. CECLOR cause rash. KEFLEX cause rash. PENICILLIN cause rash. SOCIAL HISTORY Up until last week smoked a pack a day, has 30 pack-year smoking history. No alcohol or drugs. GYNECOLOGIC HISTORY 1. Abnormal Pap smear. 2. History of chronic pelvic pain. 3. Endometriosis status post hysterectomy. FAMILY HISTORY Noncontributory. OBSTETRICAL HISTORY Three vaginal deliveries. REVIEW OF SYSTEMS Chronic fatigue. Difficulty swallowing felt to be secondary to gastroesophageal reflux disease. Frequent urination. Dysuria, nocturia, stress incontinence. Remainder of 14-point review negative. She has no neurologic symptoms presently. PHYSICAL EXAMINATION VITAL SIGNS: On her exam she is afebrile. Vital signs are stable. Blood pressure is 140/90. GENERAL: The patient is alert and oriented, in no acute distress. No sign of cognitive dysfunction or depression. HEENT: Within normal limits. NECK: Supple. No JVD. CHEST: Clear. HEART: Regular rate and rhythm. ABDOMEN: Soft, nontender. No hepatosplenomegaly. No suprapubic tenderness. PELVIC EXAM: Will be repeated in detail under anesthesia. EXTREMITIES: Normal. SKIN: Without rashes. NEURO EXAM: Nonfocal. No DVT signs. ASSESSMENT Patient with interstitial cystitis with prior good response to hydrodistention. We discussed extensively options for management and treatment. She needs to quit smoking which she seems to have more impetus now since she had a recent TIA. She understands that there is no guarantee that the hydrodistention will alleviate her symptoms and it is possible that the symptoms may be worsened. Also possibility of bladder damage. At this point we will proceed with DVT prophylaxis with sequential compression devices, antibiotic prophylaxis with Cleocin and Flagyl. HER MOTRIN ALLERGY IS RELATED TO GASTRIC UPSET, NOT SYSTEMIC SYMPTOMATOLOGY and is okay to use Toradol perioperatively. Should the patient have any further neurologic symptoms, we may have to reschedule this, but at this point with her minor TIA and no symptoms at this point I think it is reasonable to proceed with the cystoscopy. MD RYLAND Lopez/SSB /9:18 AM /11:04 AM
[~2016-06-26] VITALS: Ht 162.6 cm; Wt 97.7 kg
[~2016-06-26] MED LIST changes: -ALBU1AER INH; +ASPI81TA11 PO; -ATOR40TA49 PO; -BETH25 PO; -CETI10 PO; +CLINDAMYCIN 600 MG/NS 100 ML IV SCH; -DEXI60CA3 PO; +DO NOT ADM ANY ANTICOAGULANT DRUGS XX PRN; +DULE200A INH; +FEXO15TA PO; +HEPARIN ONE; +HEPARIN SODIUM - SQ 10,000 UNITS/ML VIAL OTHER ONE; -HYDR50 PO; +INSULIN HUMAN REGULAR 1,000 UNITS/10 ML VIAL SQ PRN; +KETOROLAC TROMETHAMINE 10 MG TAB PO PRN; +KETOROLAC TROMETHAMINE 30 MG/ML (IVP) VIAL IVP PRN; +KETOROLAC TROMETHAMINE 60 MG/2 ML (IM) VIAL IM ONE; +KETOROLAC TROMETHAMINE 60 MG/2 ML (IM) VIAL IM PRN; +LACTATED RINGER'S 1000 ML IV SCH; +LIDOCAINE HCL 1% 30 ML VIAL OTHER ONE; +METOPROLOL TARTRATE 25 MG TAB PO PRN; +METRONIDAZOLE 500 MG/100 ML ISONTONIC SOLN IV SCH; +MIDAZOLAM HCL 2 MG/2 ML VIAL ONE; -MONT10TA2 PO; +ONDANSETRON HCL 4 MG/2 ML VIAL IV PUSH PRN; +POTA10TA2 PO; -PROM25TA5 PO; +PROPOFOL 200 MG/20 ML AMP IV ONE; +SODIUM BICARBONATE 8.4% INJ 50 MEQ/50 ML SYR XX ONE; +SODIUM BICARBONATE ONE; +SODIUM CHLORID 0.9% 500 ML IV SCH; +SODIUM CHLORIDE 0.9% INJ 100 ML ONE; +TRIAMCINOLONE ACETONIDE 40 MG/ML VIAL I-LESIONAL ONE; +TRIAMCINOLONE ONE; -ZOFR4TAB3 SL; +[UNRECOGNIZED DRUG - OTHER] ONE; +fentaNYL CITRATE 250 MCG/5 ML AMP ONE
[2016-06-26 10:00] VITALS: BP 131/75; PULSE 86; RESP 18; TEMP 98.1; O2SAT 97
[2016-06-26 14:20] VITALS: BP 116/74; PULSE 88; RESP 18; TEMP 99; O2SAT 98
--- NOTE | 2016-07-01 22:01 | MP ---
cc: MONSE NAILS MD DATE OF SURGERY: 06/26/2016 PREOPERATIVE DIAGNOSES Interstitial cystitis, painful bladder syndrome. POSTOPERATIVE DIAGNOSES Interstitial cystitis, painful bladder syndrome. PROCEDURE 1. Diagnostic cystoscopy with hydrodistention. 2. Instillation of sodium bicarbonate, heparin, lidocaine 1%, Kenalog. SURGEON Monse Nails MD ANESTHESIA Laryngeal mask. BLOOD LOSS None. STOREROOM SUPERVISOR [place] staff x1. FINDINGS External genitalia normal. Pop Q score: Aa is-3, Ap is -3. Point C is -8. Total vaginal length is 8. Genital hiatus is 4. Perineal body is 4. Cystoscopy shows prior to distension no significant abnormalities of the dome base or trigone. Following hydrodistention, note that glomerulations and petechiae but no Hunner's ulcers. Anesthetic bladder capacity 700 cc. SPECIMENS None. COMPLICATIONS None. DISPOSITION Recovery room stable. COUNTS Needle and sponge count correct. DRAINS None. ANTIBIOTIC PROPHYLAXIS Cleocin and Flagyl. DVT PROPHYLAXIS Sequential compression device. TIME OUT PROCEDURE Per protocol. SUMMARY OF INDICATION FOR PROCEDURE The patient with a long history of interstitial cystitis. She has not had a cystoscopy for several years. She had reported excellent result from prior hydrodistention and wanted to proceed with cystoscopy, hydrodistention and instillation of bladder cocktail. The patient was taken to the cystoscopy suite, prepped and draped in fashion appropriate for planned procedure, identified. Timeout procedure performed per protocol. Cystoscopy using a 19-Filipino bridge, a 70-degree scope with above findings. Bladder distended with sterile water to a pressure of 50 cm of water for a period of five minutes. Bladder was drained, repeat cystoscopy with above findings of petechiae and glomerulations but no ulcerations. Solution of 1% lidocaine, sodium bicarbonate, heparin and Kenalog measuring 75 cc was instilled into the bladder. Procedure was concluded. The patient to recovery in stable condition. Should the patient have issues with continued discomfort, she may need her InterStim reprogrammed or consider level 5 modalities for treatment of IC. MD RYLAND Lopez/KATHE /2:09 PM /8:48 PM
== END | disposition home or self-care (01) ==
LOC: HSDC 08:47
PROVIDERS: ATTEND Obstetrics & Gynecology Gynecology
DX: N30.10 Interstitial cystitis (chronic) without hematuria (principal); R39.82 Chronic bladder pain; I10 Essential (primary) hypertension; M79.7 Fibromyalgia; F32.9 Major depressive disorder, single episode, unspecified; E78.00 Pure hypercholesterolemia, unspecified; Z88.0 Allergy status to penicillin; Z86.73 Personal history of transient ischemic attack (TIA), and cerebral infarction without residual deficits; Z90.710 Acquired absence of both cervix and uterus
CPT/HCPCS: 00910; 51700; 52260; J1644; J1885; J2250; J3010; J3301; J7120